=== PATIENT | female | born 2000 | race Caucasian/White ===

== ENCOUNTER 2023-08-14 13:50 | Emergency (ER) | payer OTHER ==
[~2023-08-14] VITALS: Ht 172.7 cm; Wt 79.4 kg
[2023-08-14 14:08] VITALS: O2SAT 97
[2023-08-14] MEDS ORDERED: LAMO200T2 PO (14:18)
[2023-08-14] MEDS: LIDOCAINE HCL 1% 20 ML VIAL TP ONE (15:54)
[2023-08-14] MEDS ORDERED: LIDOCAINE HCL 1% 20 ML VIAL ONE (15:56)
[2023-08-14] MEDS ORDERED: CEPH500C2 PO (17:04)
[2023-08-14] MEDS ORDERED: BACITRACIN ZINC OINT 15 GM TUBE ONE (17:28)
[2023-08-14] MEDS: CEphaleXIN 500 MG CAPSULE PO ONE (17:48)
[2023-08-14] MEDS ORDERED: CEphaleXIN 500 MG CAPSULE ONE (17:50)
[2023-08-14] MEDS ORDERED: BACITRACIN ZINC OINT 15 GM TUBE TOP STA (17:53)
== END 2023-08-14 17:59 | disposition home or self-care (01) ==
LOC: ER 13:57
DX: S61.211A Laceration without foreign body of left index finger without damage to nail, initial encounter (principal); S61.213A Laceration without foreign body of left middle finger without damage to nail, initial encounter; G40.909 Epilepsy, unspecified, not intractable, without status epilepticus; Z79.899 Other long term (current) drug therapy; W26.0XXA Contact with knife, initial encounter; Y93.89 Activity, other specified; Y92.89 Other specified places as the place of occurrence of the external cause; Y99.8 Other external cause status
CPT/HCPCS: 12001; 99283; J3490; A4606; A4663